=== PATIENT | female | born 1970 | race African-American/Black ===

== ENCOUNTER 2016-11-01 05:29 | Day surgery (SDC) | payer BC ==
[~2016-11-01] VITALS: Ht 160 cm; Wt 77.6 kg
[~2016-11-01 05:29] MED LIST: ATENOLOL25 MG PO; AUGMENTIN875 MG PO; DAILY MULTIPLE1 EACH PO; ERGOCALCIF50000 UNIT PO; HYDROCODON-ACE1 EAC7 PO; HYDROXYZINE HCL10 MG PO; NAPROXEN500 MG PO; OMEPRAZOLE40 M1 PO; PREDNISONE5 M2 PO; PROTONIX40 MG PO; ZOLOFT100 MG PO
[2016-11-01 06:01] VITALS: BP 150/90
[2016-11-01 09:35] VITALS: BP 142/82
[2016-11-01 10:25] VITALS: BP 138/81
== END 2016-11-01 10:54 | disposition home or self-care (01) ==
LOC: SDC 05:29 → EDSTATUS 09:32 → 2SOUTH 09:32 → SDC 09:33
PROC: 0WQF0ZZ Repair Abdominal Wall, Open Approach (ICD-10-PCS; principal; 2016-11-01)
DX: K43.9 Ventral hernia without obstruction or gangrene (principal); F41.9 Anxiety disorder, unspecified; Z80.0 Family history of malignant neoplasm of digestive organs; Z82.49 Family history of ischemic heart disease and other diseases of the circulatory system; Z83.3 Family history of diabetes mellitus; Z87.891 Personal history of nicotine dependence
CPT/HCPCS: J0131; J0690; J1100; J1170; J1644; J1885; J2250; J2405; J2710; J3010; S0020